=== PATIENT | female | born 1955 | race Caucasian/White ===

== ENCOUNTER 2016-12-20 17:42 | Emergency (ER) | payer OTHER ==
--- NOTE | 2016-12-20 18:32 | ED GENERAL ADULT ---
History of Present Illness General Chief Complaint: Abdominal Pain/Flank Pain Stated Complaint: R FLANK PAIN, TROUBLE WALKING, HEMATURIA Source: patient Exam Limitations: no limitations Vital Signs & Intake/Output Vital Signs & Intake/Output Vital Signs Date Time Temp Pulse Resp B/P B/P Pulse O2 O2 Flow FiO2 Mean Ox Delivery Rate 12/20 2013 96.2 76 16 134/72 93 Room Air 12/20 1750 97.7 120 22 170/100 98 Allergies Coded Allergies: Sulfa (Sulfonamide Antibiotics) (RASH 12/20/16) Reconcile Medications Alendronate Sodium (Unknown Strength) TABLET (Unknown Dose) UNKNOWN (Reported ) Aspirin (Ecotrin*) 81 MG TABLET.DR 1 TAB PO DAILY HEART/BLOOD (Reported) Cholecalciferol (Vitamin D3) (Vitamin D) (Unknown Strength) TABLET (Unknown Dose) PO DAILY SUPPLEMENT (Reported) Gabapentin 300 MG CAPSULE 1 CAP PO BID NERVE PAIN (Reported) Glatiramer Acetate (Copaxone) 40 MG/ML SYRINGE 40 MG INJ Saturday MS (Reported) Losartan Potassium 100 MG TABLET 1 TAB PO DAILY BP (Reported) Melatonin 10 MG TAB.SUBL 1 TAB PO DAILY SUPPLEMENT (Reported) Simvastatin (Simvastatin*) 20 MG TABLET 1 TAB PO QPM CHOLESTEROL (Reported) Triage Note: PER PT STARTED WITH RT BACK PAIN THIS AM HEMATURIA X 2 DAYS ON ANTIBIOTICS FOR UTI, HX OF KIDNEY STONES >20 YRS AGO. Triage Nurses Notes Reviewed? yes Onset: Abrupt Duration: hour(s): Timing: recent history HPI: 12/20/16 7 PM 61-year-old female presents to the emergency department complaining of right- sided flank pain. According to the patient she was in her usual state of health until the past several days when she developed a sudden onset of right sided lower lumbar flank pain. She saw her primary care doctor who started her on Augmentin for possible urinary tract infection. Today she noticed blood in the urine and increased pain. T he onset of the symptoms were abrupt, the duration has been several days, the severity is significant as her symptoms required her to come to the emergency department for care. Past History Travel History Traveled to [place] past 21 day No Medical History Any Pertinent Medical History? see below for history Neurological: NONE EENT: NONE Cardiovascular: hypertension Respiratory: NONE Gastrointestinal: NONE Hepatic: NONE Renal: KIDNEY STONES Musculoskeletal: NONE Psychiatric: NONE Endocrine: NONE Surgical History Surgical History: bunions, tonsillectomy Psychosocial History What is your primary language Romanian Tobacco Use: Never used Family History Hx Contributory? No Review of Systems Review of Systems Constitutional: Denies: fever. EENTM: Reports: no symptoms. Respiratory: Denies: short of breath. Cardiovascular: Denies: chest pain. GI: Reports: abdominal pain. Denies: nausea, bloody stool, vomiting. Genitourinary: Reports: see HPI. Musculoskeletal: Reports: back pain. Skin: Denies: rash. Neurological/Psychological: Reports: no symptoms. Hematologic/Endocrine: Reports: no symptoms. Immunologic/Allergic: Reports: no symptoms. Physical Exam Physical Exam General Appearance: well developed/nourished, alert, awake, anxious, mild distress Head: atraumatic, normal appearance Eyes: Bilateral: normal appearance, PERRL, EOMI. Ears, Nose, Throat: normal pharynx, normal ENT inspection Neck: normal inspection, supple, full range of motion Respiratory: normal breath sounds, chest non-tender, no respiratory distress Cardiovascular: regular rate/rhythm Peripheral Pulses: 4+ radial (R), 4+ radial (L) Gastrointestinal: soft, non-tender Back: CVA tenderness (R) Extremities: normal inspection, normal range of motion Neurologic/Psych: no motor/sensory deficits, awake, alert, oriented x 3, normal gait Skin: rash Comments: Physical exam essentially unremarkable other than tenderness to the right lower lumbar area and right CVA. No abdominal tenderness negative straight leg raising test. Core Measures ACS in differential dx? No CVA/TIA Diagnosis: No Severe Sepsis Present: No Septic Shock Present: No Progress Differential Diagnoses I considered the following diagnoses in my evaluation of the patient: [Lumbar strain, sciatica, disc herniation, compression fracture, pyelonephritis, ureterolithiasis, diverticulitis] Plan of Care: Orders Procedure Date/time Status Add-on Test (ER Only) 12/20 1854 Active COMPREHENSIVE METABOLIC PANEL 12/20 185 Complete CBC WITHOUT DIFFERENTIAL 12/20 1854 Complete CULTURE,URINE 12/21 1747 Active URINALYSIS 12/21 1747 Complete Laboratory Tests 12/20/16 1905: Anion Gap 10, Estimated GFR > 60, BUN/Creatinine Ratio 21.4, Glucose 115 H, Calcium 9.5, Total Bilirubin 0.7, AST 25, ALT 44, Alkaline Phosphatase 122, Total Protein 7.1, Albumin 4.3, Globulin 2.8, Albumin/Globulin Ratio 1.5, CBC w Diff NO MAN DIFF REQ, RBC 5.26, MCV 88.6, MCH 30.2, RDW 12.8, MPV 9.8, Gran % 81.9 H, Lymphocytes % 10.5 L, Monocytes % 5.6, Eosinophils % 1.5, Basophils % 0.5, Absolute Granulocytes 11.3 H, Absolute Lymphocytes 1.5, Absolute Monocytes 0.8 H, Absolute Eosinophils 0.2, Absolute Basophils 0.1, PUBS MCHC 34.1 12/20/161750: Urinalysis LIGHT H, Urine Color YEL, Urine Clarity HAZY H, Urine pH 6.0, Ur Specific [place] 1.020, Urine Protein TRACE H, Urine Ketones NEG, Urine Nitrite NEG, Urine Bilirubin NEG, Urine Urobilinogen 0.2, Ur Leukocyte Esterase NEG, Ur Microscopic SEDIMENT EXAMINED, Urine RBC 3-5, Urine WBC RARE, Ur Epithelial Cells MANY H, Urine Bacteria FEW H, Urine Hemoglobin SMALL H, Urine Glucose NEG Microbiology 12/20 1750 URINE ROUT: Urine Culture - RECD Initial ED EKG: none Departure Departure Disposition: STILL A PATIENT Condition: Stable Clinical Impression Primary Impression: Flank pain Referrals: BRADEN SCHMITT APRN (PCP/Family) Departure Forms: Customer Survey General Discharge Information Comments PATIENT: ASNHUL OTERO PRESENT AGE: 61 PATIENT ACCOUNT NO: [id number] : 55 LOCATION: [facility] ORDERING PHYSICIAN: JIMBO ANDERSON DO SERVICE DATE: 12/20/16 EXAM TYPE: CAT - CT ABD & PELVIS W/O IV CONTRAS EXAMINATION: CT ABDOMEN AND PELVIS WITHOUT CONTRAST CLINICAL INFORMATION: Right flank pain. COMPARISON: None. TECHNIQUE: Multidetector volumetric imaging was performed from the superior aspect of the liver through the pubic symphysis. Sagittal and coronal reformatted images were obtained on the technologist's workstation. DLP: 371 mGy-cm FINDINGS: Limited evaluation of the solid abdominal viscera in the absence of intravenous contrast. LUNG BASES: The visualized lung bases are unremarkable. LIVER, GALLBLADDER, AND BILIARY TREE: The liver is normal in size, shape, and attenuation. No focal hepatic lesion or biliary ductal dilatation is present. The gallbladder is unremarkable with no evidence of radiopaque gallstones, gallbladder wall thickening, or obvious pericholecystic inflammatory changes. PANCREAS: Unremarkable. SPLEEN: Unremarkable. ADRENAL GLANDS: Unremarkable. KIDNEYS AND URETERS: Evaluation of the bilateral kidneys and renal collecting systems is notable for a large hypoattenuating lesion arising from the lateral cortex of the upper pole of the right kidney measuring 5.7 x 6.5 x 6.5 cm in AP, transverse and craniocaudal dimensions respectively (series 602, image 66). There is an additional hypoattenuating lesion within the medial cortex of the midpole of the right kidney measuring 2 cm. These may reflect simple renal cortical cysts. No renal or ureteral stones are identified and there is no hydroureteronephrosis of either kidney or renal collecting system. BLADDER: Unremarkable. GASTROINTESTINAL TRACT: Normal anatomic orientation of the stomach relative to the duodenum. Normal caliber of abdominal and pelvic bowel loops, without evidence of obstruction or ileus. No circumferential bowel wall thickening with surrounding inflammatory changes to suggest an underlying infectious or inflammatory enterocolitis. Normal-appearing appendix within the right lower quadrant of the abdomen. Scattered colonic diverticulosis, notably involving the descending and rectosigmoid colon, without secondary signs of acute diverticulitis. No organizing intra-abdominal fluid collections or free intraperitoneal air. ABDOMINAL WALL: No significant hernia is appreciated. LYMPH NODES: No significant abdominal or pelvic adenopathy. VASCULAR: Normal course and caliber of the abdominal aorta and its branching vessels, without aneurysmal dilatation. Limited evaluation for vascular patency in the absence of intravenous contrast. PELVIC VISCERA: Unremarkable. OSSEOUS STRUCTURES: No acute osseous abnormality. Normal alignment of the thoracolumbar spine. Moderate degenerative changes of the lower lumbar spine, at the lumbosacral junction. IMPRESSION: 1. A 5.7 x 6.5 x 6.5 cm fluid attenuating lesion arising from the lateral cortex of the upper pole of the right kidney, indicative of a simple renal cortical cyst. There is a smaller 2 cm hypoattenuating lesion within the medial cortex of the midpole of the left kidney which may also reflect a simple renal cortical cyst. No right-sided perinephric stranding is identified. There are no renal or ureteral stones and there is no hydroureteronephrosis of either kidney or renal collecting system. 2. Scattered colonic diverticulosis, without secondary signs of acute diverticulitis. 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 <Electronically signed in Other Vendor System> SIGNED BY: SRI NI MD 12/20/162052 Labs reveal mild leukocytosis. Recent urine culture did grow out Escherichia coli that was sensitive to Augmentin. She is currently on Augmentin. CAT scan shows bilateral simple renal cysts. She was treated with Motrin and Flexeril and will follow-up with her doctor on Saturday. She was told to review the results of the CAT scan with her primary care doctor on Saturday. Critical Care Note Critical Care Note Critical Care Time: non-applicable
[2016-12-20 19:14] LABS: ABSOLUTE BASOPHIL COUNT 0.1 /CUMM (0.0-0.2); ABSOLUTE EOSINOPHIL COUNT 0.2 /CUMM (0.0-0.7); ABSOLUTE GRANULOCYTE CT 11.3 /CUMM (1.4-6.5); ABSOLUTE LYMPH COUNT 1.5 /CUMM (1.2-3.4); ABSOLUTE MONOCYTE COUNT 0.8 /CUMM (0.10-0.60); BASOPHIL % 0.5 % (0.0-2.0); EOSINOPHIL % 1.5 % (0-5); GRANULOCYTE % 81.9 % (42.2-75.2); HEMATOCRIT 46.6 % (37-47); MEAN CORPUSCULAR HGB 30.2 PG (27.0-31.0); MEAN CORPUSCULAR HGB CONC 34.1 G/DL (33.0-37.0); MEAN CORPUSCULAR VOLUME 88.6 FL (81.0-99.0); MEAN PLATELET VOLUME 9.8 FL (7.4-10.4); PLATELET COUNT 258 /CUMM (130-400); RBC DISTRIBUTION WIDTH 12.8 % (11.5-14.5); RED BLOOD CELL CT 5.26 /CUMM (4.20-5.40); WHITE BLOOD CELL COUNT 13.8 /CUMM (4.8-10.8)
[2016-12-20] MEDS ORDERED: SIMVASTATIN20 M2 PO (19:23)
[2016-12-20] MEDS ORDERED: LOSARTAN POTAS100 M1 PO (19:23)
[2016-12-20] MEDS ORDERED: COPAXONE40 MG/1 ML INJ (19:24)
[2016-12-20] MEDS ORDERED: VITAMIN D2000 UNI1 PO (19:24)
[2016-12-20] MEDS ORDERED: MELATONIN10 M4 PO (19:24)
[2016-12-20] MEDS ORDERED: GABAPENTIN300 M2 PO (19:24)
[2016-12-20] MEDS ORDERED: ALENDRONATE SOD70 M2 (19:25)
[2016-12-20] MEDS ORDERED: ASPIRIN EC81 M1 PO (19:25)
[2016-12-20 20:14] VITALS: BP 134/72
--- NOTE | 2016-12-20 20:53 | CT SCAN REPORT ---
EXAMINATION: CT ABDOMEN AND PELVIS WITHOUT CONTRAST CLINICAL INFORMATION: Right flank pain. COMPARISON: None. TECHNIQUE: Multidetector volumetric imaging was performed from the superior aspect of the liver through the pubic symphysis. Sagittal and coronal reformatted images were obtained on the technologist's workstation. DLP: 371 mGy-cm FINDINGS: Limited evaluation of the solid abdominal viscera in the absence of intravenous contrast. LUNG BASES: The visualized lung bases are unremarkable. LIVER, GALLBLADDER, AND BILIARY TREE: The liver is normal in size, shape, and attenuation. No focal hepatic lesion or biliary ductal dilatation is present. The gallbladder is unremarkable with no evidence of radiopaque gallstones, gallbladder wall thickening, or obvious pericholecystic inflammatory changes. PANCREAS: Unremarkable. SPLEEN: Unremarkable. ADRENAL GLANDS: Unremarkable. KIDNEYS AND URETERS: Evaluation of the bilateral kidneys and renal collecting systems is notable for a large hypoattenuating lesion arising from the lateral cortex of the upper pole of the right kidney measuring 5.7 x 6.5 x 6.5 cm in AP, transverse and craniocaudal dimensions respectively (series 602, image 66). There is an additional hypoattenuating lesion within the medial cortex of the midpole of the right kidney measuring 2 cm. These may reflect simple renal cortical cysts. No renal or ureteral stones are identified and there is no hydroureteronephrosis of either kidney or renal collecting system. BLADDER: Unremarkable. GASTROINTESTINAL TRACT: Normal anatomic orientation of the stomach relative to the duodenum. Normal caliber of abdominal and pelvic bowel loops, without evidence of obstruction or ileus. No circumferential bowel wall thickening with surrounding inflammatory changes to suggest an underlying infectious or inflammatory enterocolitis. Normal-appearing appendix within the right lower quadrant of the abdomen. Scattered colonic diverticulosis, notably involving the descending and rectosigmoid colon, without secondary signs of acute diverticulitis. No organizing intra-abdominal fluid collections or free intraperitoneal air. ABDOMINAL WALL: No significant hernia is appreciated. LYMPH NODES: No significant abdominal or pelvic adenopathy. VASCULAR: Normal course and caliber of the abdominal aorta and its branching vessels, without aneurysmal dilatation. Limited evaluation for vascular patency in the absence of intravenous contrast. PELVIC VISCERA: Unremarkable. OSSEOUS STRUCTURES: No acute osseous abnormality. Normal alignment of the thoracolumbar spine. Moderate degenerative changes of the lower lumbar spine, at the lumbosacral junction. IMPRESSION: 1. A 5.7 x 6.5 x 6.5 cm fluid attenuating lesion arising from the lateral cortex of the upper pole of the right kidney, indicative of a simple renal cortical cyst. There is a smaller 2 cm hypoattenuating lesion within the medial cortex of the midpole of the left kidney which may also reflect a simple renal cortical cyst. No right-sided perinephric stranding is identified. There are no renal or ureteral stones and there is no hydroureteronephrosis of either kidney or renal collecting system. 2. Scattered colonic diverticulosis, without secondary signs of acute diverticulitis.
[2016-12-20] MEDS ORDERED: CYCLOBENZAPRINE10 M1 PO (21:46)
[2016-12-20] MEDS ORDERED: MOBIC15 M1 PO (21:46)
== END 2016-12-20 21:51 ==
LOC: ERH 17:42
PROVIDERS: Emergency Medicine
DX: R10.31 Right lower quadrant pain (principal)
CPT/HCPCS: 74176; 81001; 87086; 96361; 96374; J1885